=== PATIENT | female | born 1995 | race Two or more races ===

== ENCOUNTER 2021-10-17 20:18 | Emergency (ER) | payer OTHER ==
[~2021-10-17] VITALS: Ht 160 cm; Wt 65.8 kg
[2021-10-17 20:51] VITALS: BP 136/74
--- NOTE | 2021-10-17 20:56 | NUR ---
PATIENT TO THE BATHROOM FOR URINE COLLECTION
--- NOTE | 2021-10-17 21:00 | NUR ---
PATIENT TO LOBBY
--- NOTE | 2021-10-17 21:17 | NUR ---
Dr. Wren examining patient.
--- NOTE | 2021-10-17 21:18 | NUR ---
Allie maharaj in [facility] - 10/17/21 at 2118 by KILLIAN EXAMINED BY LAUREEN OLVERA
--- NOTE | 2021-10-17 21:21 | NUR ---
PT TAKEN TO BED 11
--- NOTE | 2021-10-17 21:26 | NUR ---
VALVER AT BEDSIDE
--- NOTE | 2021-10-17 21:28 | NUR ---
Ultrasound at bedside.
--- NOTE | 2021-10-17 21:28 | NUR ---
Allie maharaj in [facility] - 10/17/21 at 2134 by [email or web address] ULTRASOUND AT BEDSIDE
--- NOTE | 2021-10-17 21:28 | NUR ---
ULTRASOUND AT BEDSIDE
--- NOTE | 2021-10-17 21:35 | NUR ---
26 Y/O FEMALE BIBS FROM HOME, C/O ABD PAIN AND VOMITING. - FOUND OUT ON MONDAY. FEELS OUT OF BREATH. PAIN IN THE PELVIC AREA- PRESSURE, SHARP. L1. A/OX4, AMBULATORY. PT SEATED IN BED WITH BED IN LOWEST POSITION, AND RAILS UP X1. PMH: C- SECTION NKA
[2021-10-17 21:40] LABS: BASOPHILS # (AUTO) 0.3 K/uL (0.00-0.22); BASOPHILS % (AUTO) 3.5 % (0.0-2.0); EOSINOPHILS % (AUTO) 0.5 % (0.0-4.0); HEMATOCRIT 38.1 % (36-48); HEMOGLOBIN 12.9 g/dL (12.0-16.0); LYMPHOCYTES # (AUTO) 2.9 K/uL (2.5-16.5); LYMPHOCYTES % (AUTO) 31.8 % (20.5-51.1); MEAN CORPUSCULAR HEMOGLOBIN 28 pg (27-31); MEAN CORPUSCULAR HGB CONC 34 g/dL (33-37); MEAN CORPUSCULAR VOLUME 83.7 fL (80-94); MONOCYTES # (AUTO) 0.6 K/uL (0.8-1.0); MONOCYTES % (AUTO) 6.7 % (1.7-9.3); NEUTROPHILS # (AUTO) 5.2 K/uL (1.8-7.7); NEUTROPHILS % (AUTO) 57.5 % (42.2-75.2); PLATELET COUNT (AUTO) 335 K/uL (140-450); RED BLOOD CELL COUNT(AUTO) 4.55 MIL/uL (4.20-5.40); RED CELL DISTRIBUTION WIDTH 13.2 % (11.6-13.7); WHITE BLOOD COUNT (AUTO) 9.1 K/uL (4.8-10.8)
[2021-10-17 21:56] LABS: ANION GAP 11.8 (8-16); CARBON DIOXIDE 25.9 mmol/L (21-32); CREATININE 0.6 mg/dL (0.6-1.3); POTASSIUM 3.7 mmol/L (3.5-5.1); TOTAL BILIRUBIN 0.3 mg/dL (0.0-1.0)
[2021-10-17] MEDS ORDERED: NITR100C7 PO (22:03)
--- NOTE | 2021-10-17 22:17 | NUR ---
ER AT BEDSIDE
[2021-10-17 22:21] VITALS: BP 136/74
--- NOTE | 2021-10-17 22:23 | NUR ---
Patient discharged with v/s stable. Written and verbal after care instructions given and explained. Patient alert, oriented and verbalized understanding of instructions. Ambulatory with steady gait. All questions addressed prior to discharge. ID band removed. Patient advised to follow up with PMD. Rx of MACROBID 100MG CAPSULE given. Patient educated on indication of medication including possible reaction and side effects. Opportunity to ask questions provided and answered. VSS, A/OX4, UNLABORED BREATHING, AMBULATORY, AND CALM DEMEANOR.
== END 2021-10-17 22:23 | disposition home or self-care (01) ==
LOC: MED 20:18
DX: O23.41 Unspecified infection of urinary tract in pregnancy, first trimester (principal); Z3A.01 Less than 8 weeks gestation of pregnancy; Z79.899 Other long term (current) drug therapy; Z98.890 Other specified postprocedural states
CPT/HCPCS: 36415; 76801; 80053; 81002; 81025; 84702; 85025; 86900; 86901; 99284; Q0092